=== PATIENT | male | born 1980 | race African-American/Black ===

== ENCOUNTER 2017-07-24 17:00 | Inpatient (IN) | payer OTHER ==
[~2017-07-24] VITALS: Ht 152.4 cm; Wt 120.3 kg
[~2017-07-24 17:00] MED LIST: NOHOMEMEDICATIONS
[2017-07-24 17:25] VITALS: BP 133/88
[2017-07-24 17:42] LABS: ABSOLUTE NEUTROPHILS 11.9 thou/uL (1.4-8.2); BASOPHILS 0.3 % (0.0-2.0); EOSINOPHILS 1.2 % (0.0-3.0); HEMATOCRIT 42.6 % (42.0-52.0); HEMOGLOBIN 14.2 gm/dL (14.0-18.0); LYMPHOCYTES 14.7 % (24.0-44.0); MCH 30.3 pg (26.0-34.0); MCHC 33.4 g/dL (28.0-37.0); MCV 90.7 fL (80.0-100.0); MONOCYTES 6.7 % (1.0-8.0); PLATELET COUNT 217 thou/uL (150-400); POLYS 77.1 % (36.0-66.0); WBC 15.4 thou/uL (4.0-11.0)
[2017-07-24 17:48] LABS: CALCIUM 9.2 mg/dL (8.5-10.1); CREATININE 1.2 mg/dL (0.7-1.3); POTASSIUM 3.7 mmol/L (3.5-5.1)
[2017-07-24 21:11] VITALS: BP 135/78
[2017-07-24 22:00] VITALS: BP 109/68
[2017-07-24 22:53] VITALS: BP 109/68
[2017-07-25 04:00] VITALS: BP 105/77
[2017-07-25 05:41] LABS: HEMATOCRIT 39.1 % (42.0-52.0); HEMOGLOBIN 12.7 gm/dL (14.0-18.0); MCH 29.5 pg (26.0-34.0); MCHC 32.5 g/dL (28.0-37.0); MCV 90.9 fL (80.0-100.0); RBC 4.31 mil/uL (4.50-6.00); RDW 14.1 % (10.5-14.5); WBC 11.2 thou/uL (4.0-11.0)
[2017-07-25 09:12] VITALS: BP 120/75
[2017-07-25 17:01] VITALS: BP 138/98
[2017-07-25 19:41] VITALS: BP 142/82
[2017-07-26 04:21] VITALS: BP 132/80
[2017-07-26 07:56] VITALS: BP 139/95
[2017-07-26 16:16] VITALS: BP 148/96
[2017-07-26] MEDS ORDERED: IBUPROFEN 800800 M1 PO (16:56)
[2017-07-26] MEDS ORDERED: PERCOCET 5-3251 EACH PO (16:58)
[2017-07-26] MEDS ORDERED: CLEOCIN HCL300 MG PO (17:02)
[2017-07-26 17:13] VITALS: BP 148/96
== END 2017-07-26 20:17 | disposition home or self-care (01) | DRG 872 ==
LOC: ER 17:00 → 4N 19:26 → EROBS 19:26 → 4N 21:48
PROVIDERS: Nurse Practitioner Acute Care; Nurse Practitioner Family
DX: A41.9 Sepsis, unspecified organism (principal); L03.115 Cellulitis of right lower limb; F17.210 Nicotine dependence, cigarettes, uncomplicated; F12.90 Cannabis use, unspecified, uncomplicated; R65.20 Severe sepsis without septic shock; Z83.3 Family history of diabetes mellitus
CPT/HCPCS: 10091